=== PATIENT | female | born 1930 | race Caucasian/White ===

== ENCOUNTER → 2016-10-17 | Outpatient (CLI) | payer OTHER ==
[~2016-10-17] MED LIST: ADULT LOW DOSE81 MG; CALCIUM; DIOVAN; LEVOTHYROXIN0.025 MG PO; MULTIVITAMINS; NORCO 5-325 TA1 EACH PO; ZOCOR80 MG
== END ==
LOC: RAD 01:57
DX: Z12.31 Encounter for screening mammogram for malignant neoplasm of breast (principal)

== ENCOUNTER → 2018-10-23 | Outpatient (CLI) | payer OTHER | LOC: CAT 09:43 | DX: Z13.6 Encounter for screening for cardiovascular disorders (principal); E78.00 Pure hypercholesterolemia, unspecified; I25.10 Atherosclerotic heart disease of native coronary artery without angina pectoris ==